=== PATIENT | male | born 1955 ===

== ENCOUNTER 2018-02-08 11:41 | Emergency (ER) | payer SELFPAY ==
[2018-02-08 11:56] VITALS: BP 173/76
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
--- NOTE | 2018-02-08 12:29 | RAD ---
INDICATION: Left rib injury. COMPARISON: Comparison is made with a prior chest x-ray study from March 21, 2003. TECHNIQUE: 5 views of the left ribs and dual-energy PA views of the chest were obtained. FINDINGS: There is a displaced fracture of the left lateral eighth rib and nondisplaced fractures of the lateral seventh and ninth ribs. The heart is within normal limits in size. The lungs are clear. There is no evidence for pneumothorax or pleural effusion. IMPRESSION: FRACTURES OF THE LEFT LATERAL SEVENTH THROUGH NINTH RIBS DESCRIBED.
[2018-02-08] MEDS ORDERED: HYDROcodone/ACETAMIN 5-325 MG* 1 TAB PO ONE (12:42)
== END 2018-02-08 13:01 | disposition home or self-care (01) ==
LOC: UCEAST 11:41
DX: S22.42XA Multiple fractures of ribs, left side, initial encounter for closed fracture (principal); W01.198A Fall on same level from slipping, tripping and stumbling with subsequent striking against other object, initial encounter; Y93.9 Activity, unspecified; Y92.9 Unspecified place or not applicable; R03.0 Elevated blood-pressure reading, without diagnosis of hypertension
CPT/HCPCS: 99202; G0463